=== PATIENT | female | born 1980 | race Two or more races ===

== ENCOUNTER 2020-11-29 09:33 | Emergency (ER) | payer OTHER ==
[~2020-11-29] VITALS: Ht 167.6 cm; Wt 90.7 kg
[2020-11-29 10:30] VITALS: BP 132/78
== END 2020-11-29 11:02 | disposition home or self-care (01) ==
LOC: ER 09:33
DX: S80.01XA Contusion of right knee, initial encounter (principal); S20.211A Contusion of right front wall of thorax, initial encounter; V43.52XA Car driver injured in collision with other type car in traffic accident, initial encounter; Y93.89 Activity, other specified; Y92.410 Unspecified street and highway as the place of occurrence of the external cause; Y99.8 Other external cause status
CPT/HCPCS: 71046

== ENCOUNTER 2021-02-09 14:04 | Emergency (ER) | payer OTHER ==
[~2021-02-09] VITALS: Ht 167.6 cm; Wt 78.9 kg
[2021-02-09 15:30] LABS: Urine WBC None Seen /hpf (0 - 5)
[2021-02-09 15:55] LABS: Urine Bacteria NONE SEEN /hpf (None Seen); Urine Blood Negative /uL (Negative); Urine Specific Gravity 1.007 (1.001-1.035)
[2021-02-09 17:34] VITALS: BP 113/76
== END 2021-02-09 17:42 | disposition home or self-care (01) ==
LOC: ER 14:04
DX: S39.012A Strain of muscle, fascia and tendon of lower back, initial encounter (principal); Q76.49 Other congenital malformations of spine, not associated with scoliosis; X58.XXXA Exposure to other specified factors, initial encounter; Y93.89 Activity, other specified; Y92.89 Other specified places as the place of occurrence of the external cause; Y99.8 Other external cause status
CPT/HCPCS: 72100; 81001

== ENCOUNTER 2022-04-17 10:25 | Emergency (ER) | payer OTHER ==
[~2022-04-17] VITALS: Ht 167.6 cm; Wt 85.0 kg
[2022-04-17 11:44] VITALS: BP 120/80
[2022-04-17] MEDS ORDERED: ACET-1080 PO (13:02)
== END 2022-04-17 13:09 | disposition home or self-care (01) ==
LOC: ER 10:27
DX: G44.209 Tension-type headache, unspecified, not intractable (principal)
CPT/HCPCS: 70450

== ENCOUNTER 2022-09-10 07:43 | Emergency (ER) | payer OTHER ==
[~2022-09-10] VITALS: Ht 167.6 cm; Wt 81.3 kg
[~2022-09-10 07:43] MED LIST: ACET-1080 PO
[2022-09-10 08:09] VITALS: BP 150/86
[2022-09-10] MEDS ORDERED: IBUP-1456 PO (09:11)
[2022-09-10] MEDS ORDERED: METH-1182 PO (09:11)
== END 2022-09-10 09:16 | disposition home or self-care (01) ==
LOC: ER 07:43
DX: M51.36 Other intervertebral disc degeneration, lumbar region (principal); Z79.1 Long term (current) use of non-steroidal anti-inflammatories (NSAID)
CPT/HCPCS: 72100

== ENCOUNTER 2022-09-12 13:57 | Emergency (ER) | payer OTHER ==
[~2022-09-12] VITALS: Ht 167.6 cm; Wt 82.5 kg
[~2022-09-12 13:57] MED LIST changes: +IBUP-1456 PO; +METH-1182 PO
[2022-09-12 14:34] LABS: Urine Bacteria NONE SEEN /hpf (None Seen); Urine Blood Negative /uL (Negative); Urine Mucus MODERATE (None Seen); Urine Specific Gravity 1.025 (1.001-1.035); Urine WBC 1 /hpf (0 - 5)
[2022-09-12 15:12] VITALS: BP 128/87
[2022-09-12] MEDS ORDERED: KETOROLAC TROMETH 60MG/2ML VIAL IM ONE (15:45)
[2022-09-12] MEDS ORDERED: ONDANSETRON ODT 4 MG TAB PO ONE (15:45)
[2022-09-12] MEDS ORDERED: OMEP-434 PO (16:00)
[2022-09-12] MEDS ORDERED: ZOFR4T PO (16:00)
== END 2022-09-12 16:32 | disposition home or self-care (01) ==
LOC: ER 13:59
DX: R11.0 Nausea (principal); T39.315A Adverse effect of propionic acid derivatives, initial encounter; M54.59 Other low back pain; G89.29 Other chronic pain; Z88.0 Allergy status to penicillin; Y92.89 Other specified places as the place of occurrence of the external cause
CPT/HCPCS: 81001; 96372; 99283; J1885; Q0162